=== PATIENT | female | born 1990 | race African-American/Black ===

== ENCOUNTER 2021-07-10 20:13 | Emergency (ER) | payer OTHER ==
[~2021-07-10] VITALS: Ht 162.6 cm; Wt 57.7 kg
[2021-07-10 20:30] VITALS: BP 151/90
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
--- NOTE | 2021-07-10 20:57 | RAD ---
Examination: 2 views of the left tibia and fibula HISTORY: History of left lower leg pain COMPARISON: None available Findings/ impression: The alignment of the tibia and fibula grossly appears unremarkable. There is no acute fracture or dis location identified. Mild soft tissue edema identified in the subcutaneous region left lower leg. Electronically signed by: Sonido Ferrell MD (07/10/2021 8:55 PM) [id number]
== END 2021-07-10 21:40 | disposition home or self-care (01) ==
LOC: ER 20:13
DX: S80.12XA Contusion of left lower leg, initial encounter (principal); W22.8XXA Striking against or struck by other objects, initial encounter; Y93.89 Activity, other specified; Y92.89 Other specified places as the place of occurrence of the external cause; Y99.8 Other external cause status
CPT/HCPCS: 73590; 99283

== ENCOUNTER 2021-12-15 19:07 | Emergency (ER) | payer OTHER ==
--- NOTE | 2021-12-15 22:16 | PHYS DOC ---
Past History Past Surgical History: No Surgical History General Adult EDM: Chief Complaint: SORE THROAT HPI: HPI: Patient is a 31 year old female who presents with above hx and complaints of sore throat at front desks. Pt. left without exam. . Review of Systems: Review of Systems: no exam Physical Exam: PE: no exam EKG: EKG: [] Radiology/Procedures: Radiology/Procedures: [] Heart Score: C/O Chest Pain: N/A Risk Factors: Risk Factors: DM, Current or recent (<one month) smoker, HTN, HLP, family history of CAD, obesity. Risk Scores: Score 0 - 3: 2.5% MACE over next 6 weeks - Discharge Home Score 4 - 6: 20.3% MACE over next 6 weeks - Admit for Clinical Observation Score 7 - 10: 72.7% MACE over next 6 weeks - Early Invasive Strategies Course & Med Decision Making: Course & Med Decision Making Pertinent Labs and Imaging studies reviewed. (See chart for details) Left without exam [] Dragon Disclaimer: Dragon Disclaimer: This electronic medical record was generated, in whole or in part, using a voice recognition dictation system. Departure Departure: Referrals: ARTURO TRAYLOR DO, MPH (PCP) CJ OSBORNE MD Dec 15, 2021 22:16
== END 2021-12-15 22:45 | disposition left against medical advice (07) ==
LOC: ER 19:07
DX: J02.9 Acute pharyngitis, unspecified (principal); Z53.21 Procedure and treatment not carried out due to patient leaving prior to being seen by health care provider